=== PATIENT | female | born 1960 | race Hispanic/Latino ===

== ENCOUNTER 2017-12-03 21:19 | Emergency (ER) | payer MEDICARE ==
[~2017-12-03 21:19] MED LIST: ALENDRONATE PO; ESTRADIOL TD; OMEG-75 PO; [UNRECOGNIZED DRUG - OTHER] PO
== END 2017-12-03 22:41 | disposition home or self-care (01) ==
LOC: EDH 21:19
DX: R05 Cough (principal); R50.9 Fever, unspecified; J34.89 Other specified disorders of nose and nasal sinuses; E78.5 Hyperlipidemia, unspecified; Z90.710 Acquired absence of both cervix and uterus; Z72.0 Tobacco use
CPT/HCPCS: 71045; 87804

== ENCOUNTER → 2017-12-10 | Outpatient (CLI) | payer MEDICARE | LOC: RAH 11:55 | PROVIDERS: ATTEND Family Medicine | DX: M54.2 Cervicalgia (principal) | CPT/HCPCS: 72040 ==

== ENCOUNTER → 2019-08-11 | Outpatient (CLI) | payer MEDICARE | END | disposition home or self-care (01) | LOC: OIH 11:00 | PROVIDERS: ATTEND Family Medicine | DX: M47.816 Spondylosis without myelopathy or radiculopathy, lumbar region (principal); M85.88 Other specified disorders of bone density and structure, other site; M25.78 Osteophyte, vertebrae | CPT/HCPCS: 72100 ==

== ENCOUNTER 2021-08-08 18:42 | Emergency (ER) | payer MEDICARE ==
[~2021-08-08] VITALS: Ht 160 cm; Wt 63.5 kg
[~2021-08-08 18:42] MED LIST changes: +OMEG-189 PO; -OMEG-75 PO
[2021-08-08 18:45] VITALS: BP 132/93
[2021-08-08] MEDS ORDERED: HYDROCODONE/ACETAMINOPHEN 5/325 MG TAB PO ONE (21:00)
[2021-08-08] MEDS ORDERED: CYCLOBENZAPRINE HCL 10 MG TABLET PO ONE (21:00)
[2021-08-08] MEDS ORDERED: KETOROLAC 60 MG VIAL (30MG/ML) IM ONE (21:00)
[2021-08-08] MEDS ORDERED: MELO7.5T12 PO (22:36)
[2021-08-08] MEDS ORDERED: CYCL10TA16 PO (22:36)
== END 2021-08-08 22:50 | disposition home or self-care (01) ==
LOC: EDH 18:42
DX: S16.1XXA Strain of muscle, fascia and tendon at neck level, initial encounter (principal); S29.012A Strain of muscle and tendon of back wall of thorax, initial encounter; S39.012A Strain of muscle, fascia and tendon of lower back, initial encounter; E78.00 Pure hypercholesterolemia, unspecified; Z79.1 Long term (current) use of non-steroidal anti-inflammatories (NSAID); Z87.440 Personal history of urinary (tract) infections; V79.59XA Passenger on bus injured in collision with other motor vehicles in traffic accident, initial encounter; Y93.89 Activity, other specified; Y92.89 Other specified places as the place of occurrence of the external cause; Y99.8 Other external cause status
CPT/HCPCS: 72125; 72128; 72131; 96372; 99285; J1885